=== PATIENT | female | born 1950 | race Two or more races ===

== ENCOUNTER 2017-06-13 10:44 | Emergency (ER) | payer OTHER ==
[~2017-06-13] VITALS: Ht 157.5 cm; Wt 48.5 kg
[2017-06-13] MEDS ORDERED: EVISTA60 MG (10:56)
[2017-06-13] MEDS ORDERED: PNEU16DI2 (10:57)
[2017-06-13] MEDS ORDERED: PROBIOTIC1 EAC3 (10:57)
[2017-06-13] MEDS ORDERED: CALCIUM500 M2 (10:57)
[2017-06-13] MEDS ORDERED: SYNTHROID75 MCG (10:57)
[2017-06-13] MEDS ORDERED: ASPIR 8181 MG (10:57)
== END 2017-06-13 16:19 | disposition home or self-care (01) ==
LOC: ER 10:44
DX: R10.32 Left lower quadrant pain (principal)

== ENCOUNTER 2018-04-19 07:18 | Outpatient (CLI) | payer OTHER ==
[~2018-04-19 07:18] MED LIST: ASPIR 8181 MG; CALCIUM500 M2; EVISTA60 MG; PNEU16DI2; PROBIOTIC1 EAC3; SYNTHROID75 MCG
== END 2018-04-19 07:23 | disposition home or self-care (01) ==
LOC: LAB 07:18
DX: D50.8 Other iron deficiency anemias (principal); N39.0 Urinary tract infection, site not specified; E11.42 Type 2 diabetes mellitus with diabetic polyneuropathy; E78.2 Mixed hyperlipidemia; K76.0 Fatty (change of) liver, not elsewhere classified; E03.8 Other specified hypothyroidism; E55.9 Vitamin D deficiency, unspecified; E88.89 Other specified metabolic disorders; M81.8 Other osteoporosis without current pathological fracture; E83.42 Hypomagnesemia; E56.1 Deficiency of vitamin K; D68.4 Acquired coagulation factor deficiency; E21.2 Other hyperparathyroidism; M85.88 Other specified disorders of bone density and structure, other site

== ENCOUNTER 2023-04-14 07:42 | Outpatient (CLI) | payer OTHER | END 2023-04-14 07:47 | disposition home or self-care (01) | LOC: NUCLEAR 07:42 | PROVIDERS: ATTEND Internal Medicine Pulmonary Disease | DX: J45.30 Mild persistent asthma, uncomplicated (principal); R91.1 Solitary pulmonary nodule; Z87.891 Personal history of nicotine dependence | CPT/HCPCS: 78816; A9552 ==

== ENCOUNTER 2024-04-28 21:07 | Emergency (ER) | payer OTHER ==
[~2024-04-28] VITALS: Ht 152.4 cm; Wt 50.3 kg
[2024-04-28] MEDS ORDERED: ZOLOFT20 MG/1 ML PO (21:47)
[2024-04-28] MEDS ORDERED: SIMVASTATIN5 MG PO (21:47)
[2024-04-28] MEDS ORDERED: CEFTRIAXONE SODIUM 1,000 MG VIAL IM STA (22:00)
== END 2024-04-28 22:28 | disposition home or self-care (01) ==
LOC: ER 21:10
DX: L03.113 Cellulitis of right upper limb (principal)
CPT/HCPCS: 96372; 99282; J0696